=== PATIENT | male | born 1985 | race Caucasian/White ===

== ENCOUNTER 2024-05-10 22:21 | Emergency (ER) | payer OTHER, BC ==
[~2024-05-10] VITALS: Ht 190.5 cm; Wt 118.0 kg
[2024-05-10] MEDS ORDERED: HYDR12.55 (22:43)
[2024-05-10] MEDS ORDERED: ALLO300T2 (22:43)
[2024-05-10] MEDS ORDERED: PROC10TA5 (22:43)
[2024-05-10] MEDS ORDERED: ONDA-84 (22:43)
[2024-05-10] MEDS ORDERED: CEPH500C (22:43)
[2024-05-10] MEDS ORDERED: OXYC-517 (22:43)
[2024-05-10] MEDS ORDERED: AMOX875T2 (22:43)
[2024-05-10] MEDS ORDERED: TEST200I14 (22:43)
[2024-05-10] MEDS ORDERED: LOSA50TA28 (22:43)
[2024-05-10] MEDS ORDERED: ATIV1TAB10 (22:43)
[2024-05-10] MEDS ORDERED: NITR30OI (22:43)
[2024-05-10] MEDS ORDERED: DEXTROAMP-AMPHETAMIN (22:43)
[2024-05-10] MEDS ORDERED: ACYC1TAB (22:43)
[2024-05-10] MEDS ORDERED: OLAN1TAB20 (22:43)
[2024-05-10] MEDS ORDERED: METO1TAB87 (22:43)
[2024-05-10] MEDS ORDERED: PRED50TA (22:43)
[2024-05-11 00:50] LABS: HEMATOCRIT 42.7 % (42.0-52.0); HEMOGLOBIN 15.2 g/dl (13.5-17.5); MEAN CORPUSCULAR HEMOGLOBIN 30.3 pg (27.0-33.0); MEAN CORPUSCULAR HGB CONC 35.6 g/dl (32.0-36.5); MEAN CORPUSCULAR VOLUME 85.1 fl (80.0-96.0); PLATELET COUNT, AUTOMATED 239 10^3/uL (150-450); RED BLOOD COUNT 5.02 10^6/uL (4.30-6.10); WHITE BLOOD COUNT 4.5 10^3/uL (4.0-10.0)
[2024-05-11 01:13] LABS: ALBUMIN 3.4 G/DL (3.2-5.2); ALKALINE PHOSPHATASE 62 U/L (40-129); ALT/SGPT 67 U/L (7.0-40); AST/SGOT 15 U/L (<34); BILIRUBIN,TOTAL 0.5 MG/DL (0.3-1.2); BLOOD UREA NITROGEN 14 MG/DL (9-23); CALCIUM LEVEL 8.6 MG/DL (8.5-10.1); CARBON DIOXIDE LEVEL 27 MMOL/L (20-31); CHLORIDE LEVEL 103 MMOL/L (98-107); CREATININE FOR GFR 0.86 MG/DL (0.70-1.30); GLOMERULAR FILTRATION RATE > 60.0 (>60); GLUCOSE, FASTING 119 MG/DL (60-100); POTASSIUM SERUM 3.5 MMOL/L (3.5-5.1); SODIUM LEVEL 142 MMOL/L (136-145); TOTAL PROTEIN 6.6 G/DL (5.7-8.2)
[2024-05-11] MEDS ORDERED: ISOVUE-370 76% 100ML VIAL As Ordered ONE (02:13)
[2024-05-11] MEDS: PERCOCET 5MG/325MG TAB PO ONE (02:23)
[2024-05-11] MEDS: ONDANSETRON 4MG 2ML VIAL IV ONE ×2 (02:24→08:34)
[2024-05-11] MEDS: MORPHINE 2 MG/ML 1ML VIAL IV ONE (02:24)
[2024-05-11] MEDS: TRANEXAMIC ACID 650MG TABLET (LYSTEDA) PO ONE (02:48)
[2024-05-11 03:17] LABS: INR 0.95; PARTIAL THROMBOPLASTIN TIME 24.9 SECONDS (24.8-34.2)
[2024-05-11] MEDS: MORPHINE 4 MG/ML 1ML VIAL IV ONE (05:07)
[2024-05-11 06:26] VITALS: BP 185/87
[2024-05-11] MEDS: LOSARTAN 50MG TABLET PO ONE (06:26)
[2024-05-11] MEDS: allopurinoL 300 MG TAB PO STA (06:26)
[2024-05-11] MEDS: hydroCHLOROthiazide 12.5 MG CAPSULE PO ONE (06:27)
[2024-05-11] MEDS: METOPROLOL TART 25 MG TABLET PO ONE (06:27)
[2024-05-11] MEDS: ACYCLOVIR 200 MG CAPSULE PO ONE (06:27)
[2024-05-11] MEDS: LIDOCAINE W/EPINEPHRINE 1% 20ML VIAL SC ONE (07:45)
[2024-05-11 08:28] VITALS: BP 166/91
[2024-05-11 08:30] VITALS: TEMP 97.7; O2SAT 96
== END 2024-05-11 08:49 | disposition home or self-care (01) ==
LOC: M ED 22:21
DX: K64.5 Perianal venous thrombosis (principal); I10 Essential (primary) hypertension; Z79.899 Other long term (current) drug therapy; Z79.83 Long term (current) use of bisphosphonates; Z79.52 Long term (current) use of systemic steroids
CPT/HCPCS: 74177; 80053; 85027; 85610; 85730; 86140; 93005; 99285; J2405; Q9967